=== PATIENT | female | born 1960 | race Two or more races ===

== ENCOUNTER 2020-04-28 07:39 | Day surgery (SDC) | payer OTHER ==
[~2020-04-28 07:39] MED LIST: SYNTHROID125 MCG PO
[2020-04-28] MEDS ORDERED: IBU600 MG PO (13:39)
== END 2020-04-28 19:30 | disposition home or self-care (01) ==
LOC: CIR.AMB 07:39 → EDSEX 07:39 → CIR.AMB 08:30
PROVIDERS: ATTEND Obstetrics & Gynecology Gynecology
DX: N85.01 Benign endometrial hyperplasia (principal); Z20.828 Contact with and (suspected) exposure to other viral communicable diseases

== ENCOUNTER → 2020-06-10 11:22 | Outpatient (CLI) | payer OTHER ==
[~2020-06-10 11:22] MED LIST changes: +IBU600 MG PO
== END | disposition home or self-care (01) ==
LOC: PPH VACUNA 11:22
DX: Z23 Encounter for immunization (principal)

== ENCOUNTER → 2020-07-01 15:00 | Outpatient (CLI) | payer OTHER | END | disposition home or self-care (01) | LOC: PPH VACUNA 15:00 | DX: Z23 Encounter for immunization (principal) ==

== ENCOUNTER 2020-08-26 12:15 | Inpatient (IN) | payer OTHER ==
[~2020-08-26] VITALS: Ht 167.6 cm; Wt 108.9 kg
[2020-09-16] MEDS ORDERED: ULTRACET PO (08:05)
[2020-09-16] MEDS ORDERED: COLACE100 MG PO (08:06)
== END 2020-09-16 10:42 | disposition home or self-care (01) | DRG 741 ==
LOC: EDSEX 09-08 07:45 → SURH 09-08 12:15 → O/R 09-15 05:45 → EDSEX 09-15 05:45 → SURG-SUITE 09-15 05:45
PROVIDERS: ADMIT Obstetrics & Gynecology Gynecology; ATTEND Obstetrics & Gynecology Gynecology
PROC: 0UT2FZZ Resection of Bilateral Ovaries, Via Natural or Artificial Opening With Percutaneous Endoscopic Assistance (ICD-10-PCS; 2020-09-15)
PROC: 0UT7FZZ Resection of Bilateral Fallopian Tubes, Via Natural or Artificial Opening With Percutaneous Endoscopic Assistance (ICD-10-PCS; 2020-09-15)
PROC: 0UT9FZZ Resection of Uterus, Via Natural or Artificial Opening With Percutaneous Endoscopic Assistance (ICD-10-PCS; principal; 2020-09-15 08:30)
DX: C54.1 Malignant neoplasm of endometrium (principal); N84.0 Polyp of corpus uteri; N80.0 Endometriosis of uterus; N94.89 Other specified conditions associated with female genital organs and menstrual cycle; D25.1 Intramural leiomyoma of uterus; N95.0 Postmenopausal bleeding

== ENCOUNTER 2020-11-12 09:29 | Outpatient (CLI) | payer OTHER ==
[~2020-11-12 09:29] MED LIST changes: +COLACE100 MG PO; +ULTRACET PO
== END 2020-11-12 09:30 | disposition home or self-care (01) ==
LOC: NUCLEAR 09:29
PROVIDERS: ATTEND Obstetrics & Gynecology Gynecologic Oncology
DX: C54.1 Malignant neoplasm of endometrium (principal)
CPT/HCPCS: 78815; A9552

== ENCOUNTER 2021-02-12 08:00 | Outpatient (CLI) | payer OTHER | END 2021-02-12 08:30 | disposition home or self-care (01) | LOC: PPH VACUNA 08:00 | PROVIDERS: ATTEND Emergency Medicine Pediatric Emergency Medicine | DX: Z23 Encounter for immunization (principal) ==

== ENCOUNTER 2021-11-03 09:24 | Outpatient (CLI) | payer OTHER | END 2021-11-03 09:34 | disposition home or self-care (01) | LOC: PPH VACUNA 09:24 | PROVIDERS: ATTEND Emergency Medicine Pediatric Emergency Medicine | DX: Z23 Encounter for immunization (principal) ==

== ENCOUNTER 2022-03-15 12:16 | Outpatient (CLI) | payer OTHER | END 2022-03-15 12:26 | disposition home or self-care (01) | LOC: PPH VACUNA 12:16 | PROVIDERS: ATTEND Emergency Medicine Pediatric Emergency Medicine | DX: Z23 Encounter for immunization (principal) ==